=== PATIENT | male | born 1980 | race Caucasian/White ===

== ENCOUNTER 2018-11-04 03:55 | Emergency (ER) | payer SELFPAY ==
[~2018-11-04] VITALS: Ht 180.3 cm; Wt 80.0 kg
[2018-11-04] MEDS ORDERED: NALOXONE 2 MG SYG ONE (04:18)
[2018-11-04 04:20] VITALS: Ht 180.3 cm; Wt 80.0 kg
[2018-11-04] MEDS ORDERED: LIDOCAINE/MYLANTA 40 ML BTL PO ONE (05:00)
[2018-11-04 05:19] VITALS: BP 112/87; PULSE 87; RESP 22
--- NOTE | 2018-11-04 05:43 | ERD ---
ER Documentation Chief Complaint Chief Complaint bib ra s/p heroin overdose; awoke after given narcan per EMS HPI Is a 38-year-old brought in by rescue after heroin overdose. Was given Narcan intravenously with good result. Denies any fevers or chills. Denies any other current complaints. Upon arrival patient is alert lethargic. He complains of some mild pain and noted some blood in his gums ROS All systems reviewed and are negative except as per history of present illness. Allergies Allergies: Coded Allergies: Unknown: Unable to obtain (Unverified , 11/04/18) PMhx/Soc Medical and Surgical Hx: pt denies Medical Hx, pt denies Surgical Hx Hx Alcohol Use: Yes Hx Substance Use: Yes (heroin) Hx Tobacco Use: Yes Smoking Status: Current some day smoker Physical Exam Vitals Vital Signs Date Temp Pulse Resp B/P (MAP) Pulse Ox O2 O2 Flow FiO2 Time Delivery Rate 11/04/18 87 22 112/87 97 Room Air 05:19 (95) 11/04/18 86 17 113/83 97 Nasal 2.0 04:30 (93) Cannula 11/04/18 97.4 95 11 120/74 71 04:20 (89) Physical Exam Const: No acute distress Head: Atraumatic Eyes: Normal Conjunctiva ENT: Normal External Ears, Nose and Mouth. Neck: Full range of motion. No meningismus. Resp: Clear to auscultation bilaterally Cardio: Regular rate and rhythm, no murmurs Abd: Soft, non tender, non distended. Normal bowel sounds Skin: No petechiae or rashes Back: No midline or flank tenderness Ext: No cyanosis, or edema Neur: Awake and alert Psych: Normal Mood and Affect Results 24 hrs Current Medications Medications Dose Sig/Gayathri Start Time Status Last (Trade) Ordered Route PRN Stop Time Admin Dose Reason Admin Naloxone 2 mg STK-MED 11/04/18 DC HCl ONCE .ROUTE 04:18 (Narcan) 11/04/18 04:19 40 ml ONCE ONCE 11/04/18 DC 11/04/18 Miscellaneous PO 05:00 05:11 Medication 11/04/18 05:06 (Gi Cocktail (2)) Procedures/MDM Medical decision makin-year-old male with accidental overdose. At this point clinically stable for outpatient management has been advised stop using heroin. Departure Diagnosis: Primary Impression: Accidental overdose Encounter type: initial encounter Qualified Codes: T50.901A - Poisoning by unspecified drugs, medicaments and biological substances, accidental (unintentional), initial encounter Condition: Stable Patient Instructions: Overdose, Accidental (Adult) CHANEL ALTAMIRANO Nov 04, 2018 05:43
[2018-11-04] MEDS ORDERED: ADDE30 PO (14:13)
[2018-11-04] MEDS ORDERED: IBUP-1982 PO (14:14)
== END 2018-11-04 05:19 | disposition home or self-care (01) ==
LOC: EDBD 03:55 → E/R 03:55
DX: T40.1X1A Poisoning by heroin, accidental (unintentional), initial encounter (principal); F17.210 Nicotine dependence, cigarettes, uncomplicated; T50.7X1A Poisoning by analeptics and opioid receptor antagonists, accidental (unintentional), initial encounter
CPT/HCPCS: 99282; J2310

== ENCOUNTER 2018-11-04 12:42 | Emergency (ER) | payer SELFPAY ==
[~2018-11-04] VITALS: Ht 165.1 cm; Wt 78.6 kg
[2018-11-04 12:44] VITALS: Ht 165.1 cm; Wt 78.6 kg
[2018-11-04] MEDS ORDERED: SOD CHLORIDE 0.9% 1,000 ML IV STA (13:23)
[2018-11-04] MEDS ORDERED: PANTOPRAZOLE IV 80 MG in SOD CHLORIDE 0.9% 100 ML IV STA (13:23)
[2018-11-04] MEDS ORDERED: PANTOPRAZOLE IV 80 MG in SOD CHLORIDE 0.9% 100 ML IVPB STA (13:23)
--- NOTE | 2018-11-04 13:58 | ERD ---
ER Documentation Chief Complaint Chief Complaint vomited "bright red blood" this AM; denies AP/n/v now HPI This is a 38-year-old male who is here for vomiting blood. The patient states that last night he was with friends and he took some GHB then cocaine then marijuana then oxycodone. The patient apparently overdosed on the narcotic and paramedics came and administered Narcan on the scene with an attempted intubation that was aborted. The patient was seen here in the ER and given more Narcan and he states that he was discharged inappropriately because he did not feel well and he was having blurry vision and was coughing up blood. He was discharged in the ER at 4 AM and he said he sat in the waiting room until 9 AM. He said at that time he left them at home he said once he got home, over the next 3-4 hours, he had multiple episodes of bright red blood vomitus with some initial coffee-ground emesis. No abdominal pain no history of GI bleeding in the past ulcers or gastritis. ROS All systems reviewed and are negative except as per history of present illness. Medications Home Meds Reported Medications Ibuprofen* (Ibuprofen*) 200 Mg Capsule, 200 MG PO DAILY PRN for PAIN, CAP 11/04/18 Amphet Cio-Uwcymc-G-Amphet (Adderall) 30 Mg Tablet, 30 MG PO DAILY, TAB 11/04/18 Allergies Allergies: Coded Allergies: No Known Allergy (Unverified , 11/04/18) PMhx/Soc History of Surgery: No Anesthesia Reaction: No Hx Neurological Disorder: No Hx Respiratory Disorders: No Hx Cardiac Disorders: No Hx Psychiatric Problems: No Hx Miscellaneous Medical Probl: No Hx Alcohol Use: Yes Hx Substance Use: Yes (heroin, Phoebe, Marijuana) Hx Tobacco Use: Yes Smoking Status: Current every day smoker FmHx Family History: No coronary disease Physical Exam Vitals Vital Signs Date Temp Pulse Resp B/P (MAP) Pulse Ox O2 O2 Flow FiO2 Time Delivery Rate 11/04/18 94 20 131/81 100 Room Air 16:09 (98) 11/04/18 Nasal 2 13:36 Cannula 11/04/18 98.6 88 20 123/64 99 12:44 (83) Physical Exam Const: Well-developed, well-nourished Head: Atraumatic, normocephalic Eyes: Normal Conjunctiva, PERRLA, EOMI, normal sclera, no nystagmus ENT: Normal External Ears, Nose and Mouth, moist mucus membranes. Neck: Full range of motion. No meningismus, no lymphadenopathy. Resp: Clear to auscultation bilaterally, no wheezing, rhonchi, rales Cardio: Tachycardia heart rate 103 no murmurs, S1 S2 present] Abd: Soft, non tender x 4, non distended. Normal bowel sounds, no guarding or rebound, no pulsitile abdominal masses or bruits Skin: No petechiae or rashes, no ecchymosis , no maculopapular rash Back: No midline or flank tenderness Ext: No cyanosis, or edema, FROM x 4, normal inspection, neurovascularly intact x 4 Neur: Awake and alert, STR 5/5 x 4, sensation intact x 4, no focal findings, cerebellum intact Psych: Normal Mood and Affect Result Diagram: 11/04/18 1332 11/04/18 1332 Results 24 hrs Laboratory Tests Test 11/04/18 13:32 White Blood Count 15.4 10^3/ul Red Blood Count 5.46 10^6/ul Hemoglobin 16.7 g/dl Hematocrit 49.3 % Mean Corpuscular Volume 90.3 fl Mean Corpuscular Hemoglobin 30.6 pg Mean Corpuscular Hemoglobin Concent 33.9 g/dl Red Cell Distribution Width 12.8 % Platelet Count 184 10^3/UL Mean Platelet Volume 11.0 fl Immature Granulocytes % 0.500 % Neutrophils % 88.5 % Lymphocytes % 5.3 % Monocytes % 5.4 % Eosinophils % 0.1 % Basophils % 0.2 % Nucleated Red Blood Cells % 0.0 /100WBC Immature Granulocytes # 0.080 10^3/ul Neutrophils # 13.7 10^3/ul Lymphocytes # 0.8 10^3/ul Monocytes # 0.8 10^3/ul Eosinophils # 0.0 10^3/ul Basophils # 0.0 10^3/ul Nucleated Red Blood Cells # 0.0 10^3/ul Prothrombin Time 12.6 Sec Prothrombin Time Ratio 1.0 INR International Normalized Ratio 0.93 Activated Partial Thromboplast Time 24.5 Sec Sodium Level 141 mmol/L Potassium Level 4.9 mmol/L Chloride Level 102 mmol/L Carbon Dioxide Level 29 mmol/L Anion Gap 10 Blood Urea Nitrogen 23 mg/dl Creatinine 1.13 mg/dl Est Glomerular Filtrat Rate mL/min > 60 mL/min Glucose Level 126 mg/dl Calcium Level 9.6 mg/dl Total Bilirubin 1.6 mg/dl Direct Bilirubin 0.00 mg/dl Indirect Bilirubin 1.6 mg/dl Aspartate Amino Transf (AST/SGOT) 31 IU/L Alanine Aminotransferase (ALT/SGPT) 47 IU/L Alkaline Phosphatase 69 IU/L Troponin I 0.023 ng/ml Total Protein 8.0 g/dl Albumin 4.6 g/dl Globulin 3.40 g/dl Albumin/Globulin Ratio 1.35 Current Medications Medications Dose Sig/Gayathri Start Time Status Last (Trade) Ordered Route PRN Stop Time Admin Dose Reason Admin Sodium 1,000 ml @ Q1H STAT 11/04/18 DC 11/04/18 Chloride 1,000 mls/hr IV 13:23 13:35 11/04/18 14:22 Pantoprazole 100 ml @ ONCE STAT 11/04/18 DC 11/04/18 80 mg/Sodium 400 mls/hr IVPB 13:23 13:54 Chloride 11/04/18 13:37 Pantoprazole 100 ml @ ONCE STAT 11/04/18 11/04/18 80 mg/Sodium 10 mls/hr IV 13:23 13:54 Chloride 11/04/18 23:22 Procedures/MDM MR #: [id number] DOS: 11/04/18 1323 Ordering MD: MAGDY DOTY DO Location: E/R Room/Bed: PROCEDURE: XR Chest AP portable CLINICAL INDICATION: Upper GI bleed TECHNIQUE: An AP portable radiograph of the chest was submitted. COMPARISON: None. FINDINGS: Support Hardware: None Cardiovascular: The heart is upper normal in size with the pulmonary vasculature unremarkable. Lung Parks: A suboptimal inspiration compresses lung parenchyma with exaggerated interstitial markings seen to the mid and lower lung zones bilaterally. No alveolar infiltrate or nodule is evident. Pleural Spaces: No pneumothorax or pleural effusion is identified. Osseous Structures: The osseous structures appear intact. Soft Tissues: The soft tissues appear unremarkable. IMPRESSION: 1. The heart is upper normal in size without evidence of CHF. 2. Suboptimal inspiration with exaggerated interstitial markings through the mid and lower lung zone which is likely related to pulmonary compression. No discrete infiltrate, nodule, effusion, or pneumothorax is evident. Physician Ruthie Date Time Electronically viewed and signed by Tena Garcia Physician on 11/04/2018 13:44 RH/ CC: MAGDY DOTY DO [id number] The patient's labs are unremarkable however the patient left the ER with his IV and his arm and we had to track him down we found him in the ICU parking lot. Patient's is going to sign out AGAINST MEDICAL ADVICE and he just wants to go home and smoke cigarettes. Departure Diagnosis: Primary Impression: Upper GI bleed Condition: Stable MAGDY DOTY DO Nov 04, 2018 13:57
[2018-11-04] MEDS ORDERED: ADDE30 PO (14:13)
[2018-11-04] MEDS ORDERED: IBUP-1982 PO (14:14)
[2018-11-04 16:09] VITALS: BP 131/81; PULSE 94; RESP 20
== END 2018-11-04 17:05 | disposition left against medical advice (07) ==
LOC: E/R 12:42
DX: K92.2 Gastrointestinal hemorrhage, unspecified (principal); F17.210 Nicotine dependence, cigarettes, uncomplicated
CPT/HCPCS: 36415; 71045; 80053; 84484; 85025; 85610; 85730; 86850; 86900; 86901; 96374; 96376; 99284; C9113; J7030